=== PATIENT | female | born 1995 | race Caucasian/White ===

== ENCOUNTER 2025-08-21 17:36 | Observation (INO) ==
[2025-08-21 18:11] LABS: MEAN PLATELET VOLUME 7.3 fL (7.4-11.0); RED CELL DISTRIBUTION WIDTH 13.8 % (11.6-16.5)
[2025-08-21 18:21] LABS: COR NA(FOR HYPERGLY) 145 mmol/L (136-145); CREATININE 0.88 mg/dL (0.55-1.02); eGFR NON BLACK RACES > 60 (>60)
[2025-08-21 18:23] LABS: SERUM PREGNANCY TEST, QUAL NEGATIVE <10 mIU/mL
--- NOTE | 2025-08-21 18:30 | DR.EXTPAIN ---
HPI Time seen Time Seen by Provider: 08/21/25 17:40 PCP Primary Care Physician: Tara Ozuna NP Complaint/Symptoms Chief Complaint Doctor Comments: To ED from home POV stating that she has been having intense abdominal cramps with nausea and vomiting to the point of feeling like she is going to pass out. Patient also complains of lower back pain that started yesterday has become increasingly worse Chief Complaint:: Patient c/o intense intestine cramps, dizziness, nausea, diarrhea, blurred vision, "feel like Im going to pass out", "feel my heart beating in my ears" and lower back pain that started yesterday evening and has increasingly worsened. Self Treatment fo Chief Complaint: home meds COVID-19 Coronavirus risk:travel/contact w/high risk person: No Has patient experienced Coronavirus symptoms: No Source History Provided: Patient Mode of arrival Mode of Arrival: Ambulatory Timing Onset of Chief Complaint: 08/20/25 PMH PMH Past Medical History: Yes Past Medical History: Anemia, Anxiety, Depression, Dyslipidemia, Migraines, Headaches, Hypertension and Hypothyroidism Past Medical History Comment: spinal stenosis, chronic pain, hydrocephalus, Past Surgical History: Yes Surgical History: Other Past Surgical History Comment: brain shunt x7, umbilical hernia Family History History of Family Medical Conditions: Yes Family Medical History: Diabetes Mellitus, Cancer, Heart Failure and Hypertension Social History Type of Tobacco Use: Cigarettes Alcohol Use: None Do you use any recreational Drugs:: No Lives With: Dad Lives Where: Home Travel Risk Coronavirus risk:travel/contact w/high risk person: No Has patient experienced Coronavirus symptoms: No Infectious screening Have you traveled outside the country in the last 6 months?: No Isolation: Standard ROS Review of Systems Constitutional: No Symptoms Reported Eyes: No Symptoms Reported ENTM: No Symptoms Reported Respiratoy: No Symptoms Reported Cardiovascular: No Symptoms Reported Gastrointestinal/Abdominal: See HPI, Abdominal Pain and Nausea Genitourinary: No Symptoms Reported Neurological: No Symptoms Reported Musculoskeletal: Back Integumentary: No Symptoms Reported Hematologic/Lymphatic: No Symptoms Reported Endocrine: No Symptoms Reported Psychiatric: No Symptoms Reported All Other Systems: Reviewed and Negative PE Vital Signs Vitals: Vital Signs Pulse Rate [Left Radial] 72 Respiratory Rate 20 Blood Pressure [Left Arm] 136/97 O2 Sat by Pulse Oximetry 99 General Limitations: No Limitations General Appearance: Alert and In No Apparent Distress Head Head Exam: Normal Inspection Eyes Eye exam: Normal Appearance ENT ENT Exam: Normal Exam Neck Neck Exam: Normal Inspection Chest Chest Inspection: Normal Inspection Respiratory Respiratory Exam: Normal Lung Sounds Bilat Cardiovascular Cardiovascular Exam: Regular Rate and Normal Rhythm Abdominal Exam Abdominal Exam: Normal Inspection, Normal Bowel Sounds, Soft and Other (obese mild tenderness); negative Guarding or Rigidity Extremities Extremities Exam: Normal Inspection Back Back Exam: Normal Inspection Neurological Neurological Exam: Alert, Oriented X3 and CN II-XII Intact Psychiatric Psychiatric Exam: Normal Affect and Normal Mood Skin Skin Exam: Warm, Dry, Intact and Normal Color ROR Labs Reviewed 08/21/25 18:03 08/21/25 18:03 Laboratory: WBC 12.0 X10^3/uL (3.6-10.0) H 08/21/25 18:03 RBC 4.43 X10^6/uL (3.5-5.4) 08/21/25 18:03 Hgb 14.1 g/dL (12.0-16.0) 08/21/25 18:03 Hct 41.4 % (36.0-47.0) 08/21/25 18:03 MCV 93.2 fL (80.0-100.0) 08/21/25 18:03 MCH 31.9 pg (27.0-34.0) 08/21/25 18:03 MCHC 34.2 g/dL (33.0-35.0) 08/21/25 18:03 RDW 13.8 % (11.6-16.5) 08/21/25 18:03 Plt Count 388 X10^3/uL (150.0-450.0) 08/21/25 18:03 MPV 7.3 fL (7.4-11.0) L 08/21/25 18:03 Neut % (Auto) 65.8 % (42.0-75.0) 08/21/25 18:03 Lymph % (Auto) 26.6 % (21.0-51.0) 08/21/25 18:03 Sandoval % (Auto) 5.2 % (0.0-13.0) 08/21/25 18:03 Eos % (Auto) 1.6 % (0.9-2.9) 08/21/25 18:03 Baso % (Auto) 0.8 % (0.2-1.0) 08/21/25 18:03 Neut # (Auto) 7.9 x10^3/uL (2.2-4.8) H 08/21/25 18:03 Lymph # (Auto) 3.2 X10^3/uL (1.3-2.9) H 08/21/25 18:03 Sandoval # (Auto) 0.6 x10^3/uL (0.3-0.8) 08/21/25 18:03 Eos # (Auto) 0.2 x10^3/uL (0.0-0.2) 08/21/25 18:03 Baso # (Auto) 0.1 X10^3/uL (0.0-0.1) 08/21/25 18:03 Absolute Nucleated RBC 0.1 /100WBC 08/21/25 18:03 Sodium 145 mmol/L (136-145) 08/21/25 18:03 Corrected Sodium 145 mmol/L (136-145) 08/21/25 18:03 Potassium 3.4 mmol/L (3.5-5.1) L 08/21/25 18:03 Chloride 109 mmol/L (98-107) H 08/21/25 18:03 Carbon Dioxide 24.6 mmol/L (21-32) 08/21/25 18:03 BUN 13 mg/dL (7-18) 08/21/25 18:03 Creatinine 0.88 mg/dL (0.55-1.02) 08/21/25 18:03 Est GFR (MDRD) Af Amer > 60 (>60) 08/21/25 18:03 Est GFR (MDRD) Non-Af > 60 (>60) 08/21/25 18:03 Glucose 115 mg/dL (65-99) H 08/21/25 18:03 Calcium 9.0 mg/dL (8.5-10.1) 08/21/25 18:03 Corrected Calcium TNP 08/21/25 18:03 Total Bilirubin 0.20 mg/dL (0.2-1.0) 08/21/25 18:03 AST 19 Units/L (15-37) 08/21/25 18:03 ALT 33 Units/L (12-78) 08/21/25 18:03 Alkaline Phosphatase 57 Units/L (46-116) 08/21/25 18:03 Total Protein 7.5 g/dL (6.4-8.2) 08/21/25 18:03 Albumin 3.9 g/dL (3.4-5.0) 08/21/25 18:03 Globulin 3.6 g/dL (2.5-4.5) 08/21/25 18:03 Albumin/Globulin Ratio 1.1 Ratio (1.1-2.1) 08/21/25 18:03 Amylase 50 Units/L (25-115) 08/21/25 18:03 Lipase 67 Units/L (16-77) 08/21/25 18:03 HCG, Qual Negative <10 mIU/mL 08/21/25 18:03 Specimen Type Clean catch urine 08/21/25 17:58 Urine Color Yellow (YELLOW) 08/21/25 17:58 Urine Appearance Slightly hazy (CLEAR) 08/21/25 17:58 Urine pH 5.0 (5.0 - 8.0) 08/21/25 17:58 Ur Specific [place] 1.030 (1.000-1.030) 08/21/25 17:58 Urine Protein 1+ (NEGATIVE) 08/21/25 17:58 Urine Glucose (UA) Negative (NEGATIVE) 08/21/25 17:58 Urine Ketones 1+ (NEGATIVE) 08/21/25 17:58 Urine Blood Negative (NEGATIVE) 08/21/25 17:58 Urine Nitrite Negative (NEGATIVE) 08/21/25 17:58 Urine Bilirubin Negative (NEGATIVE) 08/21/25 17:58 Urine Urobilinogen Normal (NORMAL) 08/21/25 17:58 Ur Leukocyte Esterase 1+ (NEGATIVE) 08/21/25 17:58 Urine RBC 0-2 /HPF (0-3) 08/21/25 17:58 Urine WBC 5-10 /HPF (0-5) A 08/21/25 17:58 Ur Squamous Epith Cells Few /HPF (NEGATIVE) 08/21/25 17:58 Calcium Oxalate Crystal Many /HPF (NEGATIVE) 08/21/25 17:58 Urine Bacteria Negative /HPF (NEGATIVE) 08/21/25 17:58 Ur Culture Indicated? No/not indicated 08/21/25 17:58 XRAY X-ray Results: Name: NELLY GABRIEL : 1995 Sex: F Location: ER Order Number(s): [id number] Procedure(s):BRAIN CT W/O CON Ordering Physician: Ever Gonzalez Primary Care: NFD,None Service Date: 08/21/25 Service Time: 1847 EXAM: BRAIN W/O CON HISTORY: c/o intense intestine cramps, dizziness, nausea, diarrhea, blurred vision, "feel like Im going to pass out", "feel my heart beating in my ears" and lower back pain; COMPARISON: December 28, 2024 TECHNIQUE: Axial non-contrast images of the head with coronal and sagittal reformats. Radiation dose: 841.24 mGy-cm total DLP FINDINGS: No abnormal areas of acute attenuation in the brain parenchyma. Small focus of encephalomalacia in the right frontal lobes; as seen on the previous exam. Traylor-white differentiation remains intact. No intracranial, extra-axial, fluid collection. No hemorrhage. No mass, mass effect or midline shift. Right frontal ventriculostomy tube in place. No ventriculomegaly. No acute fracture. Sinuses are well aerated. Mastoid air cells are well aerated. Globes and intraorbital contents are unremarkable. IMPRESSION: No acute intracranial abnormality identified. THIS IS AN ELECTRONICALLY VERIFIED FINAL REPORT 08/21/2025 7:49 PM - Electronically signed by Flo Cherry MD Name: NELLY GABRIEL : 1995 Sex: F Location: ER Order Number(s): [id number] Procedure(s):CT ABDOMEN/PELVIS WITH CON Ordering Physician: Ever Gonzalez Primary Care: NFD,None Service Date: 08/21/25 Service Time: 1830 EXAM: ABDCMEN/PELVIS WITH CON HISTORY: c/o intense intestine cramps, dizziness, nausea, diarrhea, blurred vision, "feel like Im going to pass out", "feel my heart beating in my ears" and lower back pain; COMPARISON: August 02, 2024 TECHNIQUE: Axial CT images of the abdomen and pelvis were obtained after the administration of 100 mL Omnipaque IV contrast and reformatted into coronal and sagittal planes for further evaluation. Radiation dose: 908.65 mGy-cm total DLP FINDINGS: Lung bases are clear. Stomach appears normal. Low-attenuation foci in the pancreatic tail measuring approximately 3.5 x 1.8 cm on coronal image 36. Mild edema adjacent to the superior aspect of the pancreatic tail. Liver, spleen and adrenal glands are unremarkable. Gallbladder appears normal with no biliary dilatation. Homogeneous enhancement of the kidneys without hydronephrosis or hydroureter. Unremarkable appearance of the urinary bladder. Imaged reproductive structures are unremarkable. Unremarkable appearance of the large and small bowel. No evidence of acute appendicitis. No pneumoperitoneum. Small volume nonspecific fluid in the pelvis. Drainage catheter extending from the left anterior chest wall to the left lower abdomen. No adenopathy. No acute osseous abnormality. IMPRESSION: Low-attenuation foci in the pancreatic tail measuring approximately 3.5 x 1.8 cm on coronal image 36. Mild edema adjacent to the superior aspect of the pancreatic tail. Findings could represent acute pancreatitis. Recommend follow-up imaging with a dedicated pancreatic protocol cross-sectional imaging study for further characterization. THIS IS AN ELECTRONICALLY VERIFIED FINAL REPORT 08/21/2025 7:57 PM - Electronically signed by Flo Cherry MD Opioid Opioid Risk Tool Age (Davonte box if 16-45): Yes History of Preadolescent Sexual Abuse: No Total: 1 Total Score Risk Category: Low Risk Copyright: Christos SCHWARZ predicting aberrant behaviors Discharge Plan Diagnosis Discharge Problem: Pancreatitis Discharge Plan Patient Disposition: 09 ADMITTED INPATIENT Condition: Stable Prescriptions: No Action tizanidine 4 mg tablet 4 mg PO TID PRN desloratadine 5 mg tablet 5 mg PO QDAY folic acid 1 mg tablet 1 mg PO QDAY ergocalciferol (vitamin D2) [Vitamin D2] 1,250 mcg (50,000 unit) capsule 1,250 unit PO WEEKLY Rx Instructions: MW Linzess 72 mcg capsule 72 mcg PO QAM PRN venlafaxine 75 mg capsule,extended release 24hr 75 mg PO DAILY rosuvastatin 5 mg tablet 5 mg PO DAILY fenofibrate nanocrystallized 145 mg tablet 145 mg PO DAILY clonazepam 0.5 mg Tablet 0.25 mg PO QHS Rx Instructions: administer 30 minutes before bedtime hydrocodone-acetaminophen 10-325 mg Tablet 1 tab PO Q6H PRN famotidine 20 mg Tablet 20 mg PO QDAY promethazine 25 mg Tablet 25 mg PO Q6H PRN losartan 25 mg Tablet 25 mg PO BID Health Concerns: Post Hospitalization: new medications and changes needed to prevent readmission or further decline. Pt educated and given instructions on all concerns. Plan of Treatment: Continue with present treatment and follow up plan. Pt is to keep follow up appointment as instructed and take medications as ordered. Follow ups/Referrals Follow ups/Referrals: NFD,None [Primary Care Provider] - 3 days Instructions Print Language: OCCITAN
[2025-08-21 18:36] LABS: BLOOD/HEMOGLOBIN,URINE NEGATIVE (NEGATIVE); LEUKOCYTE ESTERASE ,URINE 1+ (NEGATIVE); NITRITES,URINE NEGATIVE (NEGATIVE)
[2025-08-21 18:37] LABS: APPEARANCE,URINE SLIGHTLY HAZY (CLEAR)
[2025-08-21 18:45] LABS: CALCIUM OXALATE CRYSTALS,UR MANY /HPF (NEGATIVE); SQUAMOUS EPITHELIAL CELL,UR FEW /HPF (NEGATIVE)
--- NOTE | 2025-08-21 19:52 | CT ---
EXAM: BRAIN W/O CON HISTORY: c/o intense intestine cramps, dizziness, nausea, diarrhea, blurred vision, "feel like Im going to pass out", "feel my heart beating in my ears" and lower back pain; COMPARISON: December 28, 2024 TECHNIQUE: Axial non-contrast images of the head with coronal and sagittal reformats. Radiation dose: 841.24 mGy-cm total DLP FINDINGS: No abnormal areas of acute attenuation in the brain parenchyma. Small focus of encephalomalacia in the right frontal lobes; as seen on the previous exam. Traylor-white differentiation remains intact. No intracranial, extra-axial, fluid collection. No hemorrhage. No mass, mass effect or midline shift. Right frontal ventriculostomy tube in place. No ventriculomegaly. No acute fracture. Sinuses are well aerated. Mastoid air cells are well aerated. Globes and intraorbital contents are unremarkable. IMPRESSION: No acute intracranial abnormality identified. THIS IS AN ELECTRONICALLY VERIFIED FINAL REPORT 08/21/2025 7:49 PM - Electronically signed by Flo Cherry MD
--- NOTE | 2025-08-21 20:00 | CT ---
EXAM: ABDCMEN/PELVIS WITH CON HISTORY: c/o intense intestine cramps, dizziness, nausea, diarrhea, blurred vision, "feel like Im going to pass out", "feel my heart beating in my ears" and lower back pain; COMPARISON: August 02, 2024 TECHNIQUE: Axial CT images of the abdomen and pelvis were obtained after the administration of 100 mL Omnipaque IV contrast and reformatted into coronal and sagittal planes for further evaluation. Radiation dose: 908.65 mGy-cm total DLP FINDINGS: Lung bases are clear. Stomach appears normal. Low-attenuation foci in the pancreatic tail measuring approximately 3.5 x 1.8 cm on coronal image 36. Mild edema adjacent to the superior aspect of the pancreatic tail. Liver, spleen and adrenal glands are unremarkable. Gallbladder appears normal with no biliary dilatation. Homogeneous enhancement of the kidneys without hydronephrosis or hydroureter. Unremarkable appearance of the urinary bladder. Imaged reproductive structures are unremarkable. Unremarkable appearance of the large and small bowel. No evidence of acute appendicitis. No pneumoperitoneum. Small volume nonspecific fluid in the pelvis. Drainage catheter extending from the left anterior chest wall to the left lower abdomen. No adenopathy. No acute osseous abnormality. IMPRESSION: Low-attenuation foci in the pancreatic tail measuring approximately 3.5 x 1.8 cm on coronal image 36. Mild edema adjacent to the superior aspect of the pancreatic tail. Findings could represent acute pancreatitis. Recommend follow-up imaging with a dedicated pancreatic protocol cross-sectional imaging study for further characterization. THIS IS AN ELECTRONICALLY VERIFIED FINAL REPORT 08/21/2025 7:57 PM - Electronically signed by Flo Cherry MD
--- NOTE | 2025-08-21 20:52 | DR.EXTPAIN ---
HPI Time seen Time Seen by Provider: 08/21/25 17:40 PCP Primary Care Physician: Tara Ozuna NP Complaint/Symptoms Chief Complaint:: Patient c/o intense intestine cramps, dizziness, nausea, diarrhea, blurred vision, "feel like Im going to pass out", "feel my heart beating in my ears" and lower back pain that started yesterday evening and has increasingly worsened. Self Treatment fo Chief Complaint: home meds COVID-19 Coronavirus risk:travel/contact w/high risk person: No Has patient experienced Coronavirus symptoms: No Source History Provided: Patient Mode of arrival Mode of Arrival: Ambulatory Timing Onset of Chief Complaint: 08/20/25 PMH PMH Past Medical History: Yes Past Medical History: Anemia, Anxiety, Depression, Dyslipidemia, Migraines, Headaches, Hypertension and Hypothyroidism Past Medical History Comment: spinal stenosis, chronic pain, hydrocephalus, Past Surgical History: Yes Surgical History: Other Past Surgical History Comment: brain shunt x7, umbilical hernia Family History History of Family Medical Conditions: Yes Family Medical History: Diabetes Mellitus, Cancer, Heart Failure and Hypertension Social History Type of Tobacco Use: Cigarettes Alcohol Use: None Do you use any recreational Drugs:: No Lives With: Dad Lives Where: Home Travel Risk Coronavirus risk:travel/contact w/high risk person: No Has patient experienced Coronavirus symptoms: No Infectious screening Have you traveled outside the country in the last 6 months?: No Isolation: Standard PE Vital Signs Vitals: Vital Signs Pulse Rate [Left Radial] 72 Respiratory Rate 20 Blood Pressure [Left Arm] 136/97 O2 Sat by Pulse Oximetry 99 ROR Labs Reviewed 08/21/25 18:03 08/21/25 18:03 Laboratory: WBC 12.0 X10^3/uL (3.6-10.0) H 08/21/25 18:03 RBC 4.43 X10^6/uL (3.5-5.4) 08/21/25 18:03 Hgb 14.1 g/dL (12.0-16.0) 08/21/25 18:03 Hct 41.4 % (36.0-47.0) 08/21/25 18:03 MCV 93.2 fL (80.0-100.0) 08/21/25 18:03 MCH 31.9 pg (27.0-34.0) 08/21/25 18:03 MCHC 34.2 g/dL (33.0-35.0) 08/21/25 18:03 RDW 13.8 % (11.6-16.5) 08/21/25 18:03 Plt Count 388 X10^3/uL (150.0-450.0) 08/21/25 18:03 MPV 7.3 fL (7.4-11.0) L 08/21/25 18:03 Neut % (Auto) 65.8 % (42.0-75.0) 08/21/25 18:03 Lymph % (Auto) 26.6 % (21.0-51.0) 08/21/25 18:03 Gordon % (Auto) 5.2 % (0.0-13.0) 08/21/25 18:03 Eos % (Auto) 1.6 % (0.9-2.9) 08/21/25 18:03 Baso % (Auto) 0.8 % (0.2-1.0) 08/21/25 18:03 Neut # (Auto) 7.9 x10^3/uL (2.2-4.8) H 08/21/25 18:03 Lymph # (Auto) 3.2 X10^3/uL (1.3-2.9) H 08/21/25 18:03 Gordon # (Auto) 0.6 x10^3/uL (0.3-0.8) 08/21/25 18:03 Eos # (Auto) 0.2 x10^3/uL (0.0-0.2) 08/21/25 18:03 Baso # (Auto) 0.1 X10^3/uL (0.0-0.1) 08/21/25 18:03 Absolute Nucleated RBC 0.1 /100WBC 08/21/25 18:03 Sodium 145 mmol/L (136-145) 08/21/25 18:03 Corrected Sodium 145 mmol/L (136-145) 08/21/25 18:03 Potassium 3.4 mmol/L (3.5-5.1) L 08/21/25 18:03 Chloride 109 mmol/L (98-107) H 08/21/25 18:03 Carbon Dioxide 24.6 mmol/L (21-32) 08/21/25 18:03 BUN 13 mg/dL (7-18) 08/21/25 18:03 Creatinine 0.88 mg/dL (0.55-1.02) 08/21/25 18:03 Est GFR (MDRD) Af Amer > 60 (>60) 08/21/25 18:03 Est GFR (MDRD) Non-Af > 60 (>60) 08/21/25 18:03 Glucose 115 mg/dL (65-99) H 08/21/25 18:03 Calcium 9.0 mg/dL (8.5-10.1) 08/21/25 18:03 Corrected Calcium TNP 08/21/25 18:03 Total Bilirubin 0.20 mg/dL (0.2-1.0) 08/21/25 18:03 AST 19 Units/L (15-37) 08/21/25 18:03 ALT 33 Units/L (12-78) 08/21/25 18:03 Alkaline Phosphatase 57 Units/L (46-116) 08/21/25 18:03 Total Protein 7.5 g/dL (6.4-8.2) 08/21/25 18:03 Albumin 3.9 g/dL (3.4-5.0) 08/21/25 18:03 Globulin 3.6 g/dL (2.5-4.5) 08/21/25 18:03 Albumin/Globulin Ratio 1.1 Ratio (1.1-2.1) 08/21/25 18:03 Amylase 50 Units/L (25-115) 08/21/25 18:03 Lipase 67 Units/L (16-77) 08/21/25 18:03 HCG, Qual Negative <10 mIU/mL 08/21/25 18:03 Specimen Type Clean catch urine 08/21/25 17:58 Urine Color Yellow (YELLOW) 08/21/25 17:58 Urine Appearance Slightly hazy (CLEAR) 08/21/25 17:58 Urine pH 5.0 (5.0 - 8.0) 08/21/25 17:58 Ur Specific [place] 1.030 (1.000-1.030) 08/21/25 17:58 Urine Protein 1+ (NEGATIVE) 08/21/25 17:58 Urine Glucose (UA) Negative (NEGATIVE) 08/21/25 17:58 Urine Ketones 1+ (NEGATIVE) 08/21/25 17:58 Urine Blood Negative (NEGATIVE) 08/21/25 17:58 Urine Nitrite Negative (NEGATIVE) 08/21/25 17:58 Urine Bilirubin Negative (NEGATIVE) 08/21/25 17:58 Urine Urobilinogen Normal (NORMAL) 08/21/25 17:58 Ur Leukocyte Esterase 1+ (NEGATIVE) 08/21/25 17:58 Urine RBC 0-2 /HPF (0-3) 08/21/25 17:58 Urine WBC 5-10 /HPF (0-5) A 08/21/25 17:58 Ur Squamous Epith Cells Few /HPF (NEGATIVE) 08/21/25 17:58 Calcium Oxalate Crystal Many /HPF (NEGATIVE) 08/21/25 17:58 Urine Bacteria Negative /HPF (NEGATIVE) 08/21/25 17:58 Ur Culture Indicated? No/not indicated 08/21/25 17:58 Opioid Opioid Risk Tool Age (Davonte box if 16-45): Yes History of Preadolescent Sexual Abuse: No Total: 1 Total Score Risk Category: Low Risk Copyright: Christos SCHWARZ predicting aberrant behaviors Discharge Plan Diagnosis Discharge Problem: Pancreatitis Discharge Plan Patient Disposition: ADMITTED INPATIENT Condition: Stable Prescriptions: No Action tizanidine 4 mg tablet 4 mg PO TID PRN desloratadine 5 mg tablet 5 mg PO QDAY folic acid 1 mg tablet 1 mg PO QDAY ergocalciferol (vitamin D2) [Vitamin D2] 1,250 mcg (50,000 unit) capsule 1,250 unit PO WEEKLY Rx Instructions: MW Linzess 72 mcg capsule 72 mcg PO QAM PRN venlafaxine 75 mg capsule,extended release 24hr 75 mg PO DAILY rosuvastatin 5 mg tablet 5 mg PO DAILY fenofibrate nanocrystallized 145 mg tablet 145 mg PO DAILY clonazepam 0.5 mg Tablet 0.25 mg PO QHS Rx Instructions: administer 30 minutes before bedtime hydrocodone-acetaminophen 10-325 mg Tablet 1 tab PO Q6H PRN famotidine 20 mg Tablet 20 mg PO QDAY promethazine 25 mg Tablet 25 mg PO Q6H PRN losartan 25 mg Tablet 25 mg PO BID Health Concerns: Post Hospitalization: new medications and changes needed to prevent readmission or further decline. Pt educated and given instructions on all concerns. Plan of Treatment: Continue with present treatment and follow up plan. Pt is to keep follow up appointment as instructed and take medications as ordered. Orders to Discharge Patient Discharge Orders: Transfer (Routine); Ordered 08/21/25 Ordered By: Ever Gonzalez Follow ups/Referrals Follow ups/Referrals: NFD,None [Primary Care Provider] - 3 days Instructions Print Language: LUX[place]BOURGISH
[2025-08-21] MEDS: NORCO 10/325 TAB PO ONE (20:55)
[2025-08-21] MEDS ORDERED: CONSULT PHARMACY - POTASSIUM & MAGNESIUM XX SCH (21:19)
[2025-08-21] MEDS ORDERED: TYLENOL 325 MG TAB PO PRN (21:19)
[2025-08-21] MEDS ORDERED: FLAGYL TAB 500 MG PO SCH (22:00)
[2025-08-21] MEDS ORDERED: NS 1,000 ML IV 1,000 ML ONE (22:38)
[2025-08-21] MEDS: COZAAR PO SCH (22:54)
[2025-08-21] MEDS: K-DUR TAB 20 MEQ PO ONE (22:55)
[2025-08-21] MEDS: ZOSYN VIAL 3.375 GRAMS 3.375 G in NS 100 ML IV 100 ML IV SCH (22:55)
[2025-08-21] MEDS: KLONOPIN TAB 0.5 MG PO SCH (22:55)
[2025-08-21] MEDS: NS 1,000 ML IV 1,000 ML IV SCH (22:55)
[2025-08-21] MEDS: NS 250 ML IV 25 ML IV PRN (22:58)
[2025-08-21 23:06] VITALS: BMI 38.9
[2025-08-21] MEDS: PROTONIX INJ 40 MG VIAL IVP SCH (23:15)
[2025-08-21] MEDS: PHENERGAN TAB 25 MG PO PRN (23:15)
[2025-08-21] MEDS: OMNIPAQUE 350 mg/mL 100 mL BTL 100 ML ONE (23:24)
[2025-08-22] MEDS: NORCO 5/325 MG TAB PO PRN (00:59)
[2025-08-22] MEDS: ULTRAM PO PRN (05:27)
[2025-08-22 06:17] LABS: MEAN PLATELET VOLUME 7.5 fL (7.4-11.0); RED CELL DISTRIBUTION WIDTH 14.2 % (11.6-16.5)
[2025-08-22 06:35] LABS: CREATININE 0.80 mg/dL (0.55-1.02); eGFR NON BLACK RACES > 60 (>60)
[2025-08-22] MEDS ORDERED: CONSULT PHARMACY - POTASSIUM & MAGNESIUM XX SCH (07:00)
[2025-08-22 08:33] LABS: CHOL/HDL RATIO 3.9 (0.0-5.0)
[2025-08-22] MEDS ORDERED: OFIRMEV IV 1000 MG VIAL 1,000 MG/100 ML VIAL IV PRN (09:23)
[2025-08-22] MEDS: TORADOL 15 MG VIAL IVP ONE (10:02)
[2025-08-22] MEDS: POTASSIUM CHLORIDE LIQ PO ONE (11:19)
--- NOTE | 2025-08-22 15:04 | US ---
EXAM: Gallbladder sonogram HISTORY: Abdominal pain, pancreatic mass on CT TECHNIQUE: Multiple grayscale sonographic images were obtained. COMPARISON: None FINDINGS: Liver was mildly enlarged measuring 19.8 cm AP. The echogenicity of the hepatic parenchyma was increased suggestive of diffuse fatty infiltration. No cyst, mass, or biliary ductal dilatation identified. Portal venous blood flow was hepatopetal. Hepatic artery was patent. Hepatic venous blood flow was hepatofugal. No gallstones identified within the gallbladder. Gallbladder wall thickness was normal. Common duct measured 3.2 mm. Right kidney measured 11.6 cm in length. Cortical thickness and cortical echogenicity are normal. No solid masses, hydro nephrosis, stones, or perinephric fluid collections were identified. Evaluation of the pancreas demonstrated the head and body of the pancreas to be normal. Unfortunately, tail is obscured by overlying bowel gas. The low-attenuation lesion noted to be in the area of the tail of the pancreas on the recent CT is obscured. Correlation with MRI is recommended. IMPRESSION: Pancreatic tail was obscured by overlying bowel gas. The low-attenuation lesion noted on CT was not visualized on this examination. Correlation with MRI of the abdomen recommended. Mild hepatomegaly with diffuse fatty infiltration of the liver No evidence for cholecystitis or cholelithiasis THIS IS AN ELECTRONICALLY VERIFIED FINAL REPORT 08/22/2025 2:49 PM - Electronically signed by Ever San MD
[2025-08-22 20:57] LABS: CRYPTOSPORIDIUM PARVUM ANTIGEN NEGATIVE (NEGATIVE); GIARDIA LAMBLIA ANTIGEN NEGATIVE (NEGATIVE)
[2025-08-22] MEDS: BENTYL CAP 10 MG PO SCH (21:20)
[2025-08-22] MEDS: POTASSIUM CHLORIDE LIQ PO SCH (21:20)
[2025-08-23 04:25] VITALS: TEMP 98.2
[2025-08-23 05:04] LABS: MEAN PLATELET VOLUME 7.4 fL (7.4-11.0); RED CELL DISTRIBUTION WIDTH 13.7 % (11.6-16.5)
[2025-08-23 05:25] LABS: COR CA(FOR HYPOALB) 8.9 mg/dL (8.5-10.1); CREATININE 0.75 mg/dL (0.55-1.02); eGFR NON BLACK RACES > 60 (>60)
[2025-08-23] MEDS ORDERED: CONSULT PHARMACY - POTASSIUM & MAGNESIUM XX SCH (07:00)
[2025-08-23] MEDS: K-DUR TAB 20 MEQ PO ONE (08:28)
[2025-08-23] MEDS: MAG-OX TAB PO SCH (08:28)
[2025-08-23 09:00] VITALS: BP 123/56; PULSE 60; RESP 20; O2SAT 95
== END 2025-08-23 11:10 | disposition home or self-care (01) ==
LOC: MED/SURG 17:36 → ER 17:36 → MED/SURG 21:10
PROVIDERS: ADMIT Internal Medicine; ATTEND Internal Medicine
DX: M06.80 Other specified rheumatoid arthritis, unspecified site; Z68.39 Body mass index [BMI] 39.0-39.9, adult; E83.42 Hypomagnesemia; R74.8 Abnormal levels of other serum enzymes; K85.80 Other acute pancreatitis without necrosis or infection; M62.81 Muscle weakness (generalized); E83.51 Hypocalcemia; R10.84 Generalized abdominal pain; D72.828 Other elevated white blood cell count; R73.09 Other abnormal glucose; G89.4 Chronic pain syndrome; Z98.2 Presence of cerebrospinal fluid drainage device; E03.8 Other specified hypothyroidism; R42 Dizziness and giddiness; I10 Essential (primary) hypertension; R93.3 Abnormal findings on diagnostic imaging of other parts of digestive tract; M54.59 Other low back pain; K21.9 Gastro-esophageal reflux disease without esophagitis; E66.9 Obesity, unspecified; E78.5 Hyperlipidemia, unspecified; H53.8 Other visual disturbances; Z79.899 Other long term (current) drug therapy; F41.8 Other specified anxiety disorders; Z65.8 Other specified problems related to psychosocial circumstances; Z72.0 Tobacco use; E87.6 Hypokalemia; K29.00 Acute gastritis without bleeding; R55 Syncope and collapse; M48.00 Spinal stenosis, site unspecified; R11.2 Nausea with vomiting, unspecified; Z60.8 Other problems related to social environment; R26.81 Unsteadiness on feet